=== PATIENT | male | born 1970 | race Caucasian/White ===

== ENCOUNTER → 2017-05-31 | Outpatient (CLI) | payer OTHER ==
[~2017-05-31] MED LIST: DAYPRO600 M1 PO; KEFLEX500 M1 PO; NAPROSYN500 MG PO
[2017-05-31 08:06] LABS: BASO % 0.7 % (0.0-1.0); EOS # 0.1 10*3/uL (0.0-0.4); EOS % 2.4 % (1.0-4.0); HEMATOCRIT 46.2 % (42.0-52.0); HEMOGLOBIN 16.1 g/dl (14.0-18.0); LYMPH # 1.4 10*3/uL (1.3-4.4); MEAN CELL VOLUME 89.4 fl (80.0-94.0); MEAN CORPUSCULAR HGB 31.1 pg (27.0-31.0); MEAN CORPUSCULAR HGB CONC 34.8 g/dl (33.0-37.0); MEAN PLATELET VOLUME 9.9 fl (9.6-12.3); MONO # 0.4 10*3/uL (0.1-1.0); NEUT # 2.6 10*3/uL (2.3-7.9); NEUT % 58.7 % (47.0-73.0); PLATELET COUNT AUTOMATED 203 10*3/uL (130-400); RED BLOOD COUNT 5.17 10*6/uL (4.50-5.90); RED CELL DISTRI WIDTH 12.7 % (0-14.5); WHITE BLOOD COUNT 4.5 10*3/uL (4.8-10.8)
[2017-05-31 08:30] LABS: ALBUMIN 3.7 gm/dl (3.1-4.5); ALKALINE PHOSPHATASE 78 U/L (45-117); BUN 19 mg/dl (7-24); CHLORIDE 106 mmol/L (98-107); CHOLESTEROL 221 mg/dL (<200); CREATININE 1.12 mg/dL (0.70-1.30); HDL CHOLESTEROL 56 mg/dl (40-60); LDL CHOLESTEROL 142 mg/dL (9-159); POTASSIUM 4.6 mmol/L (3.5-5.1); SGOT/AST 26 IU/L (3-35); SGPT/ALT 60 U/L (12-78); SODIUM 140 mmol/L (136-145); TOTAL PROTEIN 7.4 gm/dL (6.4-8.2); TRIGLYCERIDES 114 mg/dl (<150); VLDL CHOLESTEROL 23 mg/dL (6-40)
== END | disposition home or self-care (01) ==
LOC: LAB 07:51
PROVIDERS: Family Medicine
DX: E55.9 Vitamin D deficiency, unspecified (principal); E66.9 Obesity, unspecified

== ENCOUNTER → 2018-03-19 | Outpatient (CLI) | payer OTHER | END | disposition home or self-care (01) | LOC: RESCLI 01:43 | DX: E66.9 Obesity, unspecified (principal); R03.0 Elevated blood-pressure reading, without diagnosis of hypertension; N52.9 Male erectile dysfunction, unspecified; Z76.89 Persons encountering health services in other specified circumstances; Z88.8 Allergy status to other drugs, medicaments and biological substances; Z79.899 Other long term (current) drug therapy; Z68.34 Body mass index [BMI] 34.0-34.9, adult ==

== ENCOUNTER → 2018-06-27 | Outpatient (CLI) | payer OTHER | END | disposition home or self-care (01) | LOC: RESCLI 03:31 | DX: E66.9 Obesity, unspecified (principal); N52.9 Male erectile dysfunction, unspecified; F32.0 Major depressive disorder, single episode, mild; Z79.82 Long term (current) use of aspirin; Z79.899 Other long term (current) drug therapy; Z88.8 Allergy status to other drugs, medicaments and biological substances ==

== ENCOUNTER → 2018-07-30 | Outpatient (CLI) | payer OTHER ==
[2018-07-31 07:10] LABS: PROLACTIN 004465 33.5 ng/mL (4.0-15.2)
[2018-08-01 12:06] LABS: TESTOSTERONE FREE, (DIRECT) 5.1 pg/mL (6.8-21.5)
== END | disposition home or self-care (01) ==
LOC: LAB 07:19
DX: N52.01 Erectile dysfunction due to arterial insufficiency (principal)

== ENCOUNTER → 2018-09-20 | Outpatient (CLI) | payer OTHER ==
[2018-09-20 10:03] LABS: ALBUMIN 3.9 gm/dl (3.1-4.5); ALKALINE PHOSPHATASE 77 U/L (45-117); BUN 12 mg/dl (7-24); CHLORIDE 107 mmol/L (98-107); FREE T4 1.03 ng/dl (0.76-1.46); POTASSIUM 4.2 mmol/L (3.5-5.1); SGOT/AST 20 IU/L (3-35); SGPT/ALT 49 U/L (12-78); SODIUM 141 mmol/L (136-145); TOTAL PROTEIN 7.3 gm/dL (6.4-8.2)
[2018-09-21 10:05] LABS: FOLLICLE STIMULATING HORMONE 2.5 mIU/mL (1.5-12.4); LUTEINIZING HORMONE 004283 4.3 mIU/mL (1.7-8.6); PROLACTIN 004465 14.6 ng/mL (4.0-15.2)
[2018-09-22 12:09] LABS: TESTOSTERONE FREE, (DIRECT) 5.1 pg/mL (6.8-21.5)
== END | disposition home or self-care (01) ==
LOC: LAB 09-18 07:39
PROVIDERS: Internal Medicine Endocrinology, Diabetes & Metabolism
DX: E29.1 Testicular hypofunction (principal); R68.82 Decreased libido

== ENCOUNTER → 2018-12-19 | Outpatient (CLI) | payer OTHER ==
[2018-12-19 09:38] LABS: BUN 15 mg/dl (7-24); CHLORIDE 104 mmol/L (98-107); CREATININE 1.28 mg/dL (0.70-1.30); POTASSIUM 4.5 mmol/L (3.5-5.1); SGOT/AST 30 IU/L (3-35); SGPT/ALT 64 U/L (12-78); SODIUM 139 mmol/L (136-145)
[2018-12-19 09:40] LABS: ALKALINE PHOSPHATASE 82 U/L (45-117); TOTAL PROTEIN 7.6 gm/dL (6.4-8.2)
== END | disposition home or self-care (01) ==
LOC: LAB 08:31
PROVIDERS: Internal Medicine Endocrinology, Diabetes & Metabolism
DX: E29.1 Testicular hypofunction (principal); R68.82 Decreased libido

== ENCOUNTER → 2019-05-27 | Outpatient (CLI) | payer OTHER ==
[2019-05-27 10:06] LABS: ALBUMIN 3.9 gm/dl (3.1-4.5); BUN 18 mg/dl (7-24); CHLORIDE 101 mmol/L (98-107); POTASSIUM 4.3 mmol/L (3.5-5.1); SODIUM 134 mmol/L (136-145)
[2019-05-27 10:09] LABS: ALKALINE PHOSPHATASE 88 U/L (45-117); CREATININE 1.24 mg/dL (0.70-1.30); SGOT/AST 32 IU/L (3-35); SGPT/ALT 63 U/L (12-78); TOTAL PROTEIN 7.3 gm/dL (6.4-8.2)
== END | disposition home or self-care (01) ==
LOC: LAB 08:28
PROVIDERS: Internal Medicine Endocrinology, Diabetes & Metabolism
DX: E29.1 Testicular hypofunction (principal)

== ENCOUNTER → 2019-09-09 | Outpatient (CLI) | payer BC ==
[2019-09-11 10:06] LABS: TESTOSTERONE FREE, (DIRECT) 17.8 pg/mL (6.8-21.5)
== END ==
LOC: LAB 11:41
PROVIDERS: Internal Medicine Endocrinology, Diabetes & Metabolism
DX: E29.1 Testicular hypofunction (principal)

== ENCOUNTER → 2020-07-13 | Outpatient (CLI) | payer BC, OTHER ==
[~2020-07-13] MED LIST changes: +ASPIRIN ADULT L81 M2 PO; +PROTONIX20 MG PO; +XYOSTED SQ; +ZYRTEC10 M3 PO
[2020-07-13 13:10] LABS: BASO % 0.7 % (0.0-1.0); EOS # 0.1 10*3/uL (0.0-0.4); EOS % 1.9 % (1.0-4.0); HEMATOCRIT 54.2 % (42.0-52.0); LYMPH # 1.4 10*3/uL (1.3-4.4); LYMPH % 24.2 % (27.0-41.0); MEAN CELL VOLUME 90.9 fl (80.0-94.0); MEAN CORPUSCULAR HGB 30.9 pg (27.0-31.0); MEAN CORPUSCULAR HGB CONC 33.9 g/dl (33.0-37.0); MEAN PLATELET VOLUME 9.6 fl (9.6-12.3); MONO # 0.4 10*3/uL (0.1-1.0); MONO % 6.7 % (3.0-9.0); NEUT # 3.9 10*3/uL (2.3-7.9); NEUT % 66.3 % (47.0-73.0); PLATELET COUNT AUTOMATED 198 10*3/uL (130-400); RED BLOOD COUNT 5.96 10*6/uL (4.50-5.90); RED CELL DISTRI WIDTH 12.6 % (0-14.5); WHITE BLOOD COUNT 5.8 10*3/uL (4.8-10.8)
[2020-07-13 13:26] LABS: ALBUMIN 3.9 gm/dl (3.1-4.5); ALKALINE PHOSPHATASE 78 U/L (45-117); BUN 18 mg/dl (7-24); CHLORIDE 106 mmol/L (98-107); CHOLESTEROL 194 mg/dL (<200); CREATININE 1.18 mg/dL (0.70-1.30); FREE T4 1.05 ng/dl (0.76-1.46); POTASSIUM 4.1 mmol/L (3.5-5.1); SGOT/AST 32 IU/L (3-35); SGPT/ALT 90 U/L (12-78); SODIUM 136 mmol/L (136-145); TOTAL PROTEIN 7.5 gm/dL (6.4-8.2); TRIGLYCERIDES 149 mg/dl (<150); VLDL CHOLESTEROL 30 mg/dL (6-40)
[2020-07-13 13:31] LABS: HDL CHOLESTEROL 50 mg/dl (40-60); LDL CHOLESTEROL 114 mg/dL (9-159)
[2020-07-13 14:05] LABS: VITAMIN D, 25-HYDROXY 29.3 ng/mL (30-100)
== END | disposition home or self-care (01) ==
LOC: COVID19 10:00 → LAB 12:09
PROVIDERS: ATTEND Surgery
DX: Z01.812 Encounter for preprocedural laboratory examination (principal); F39 Unspecified mood [affective] disorder; Z20.828 Contact with and (suspected) exposure to other viral communicable diseases

== ENCOUNTER → 2020-07-18 | Day surgery (SDC) | payer BC, OTHER ==
[~2020-07-18] VITALS: Ht 182.8 cm; Wt 115.2 kg
[2020-07-18 06:52] VITALS: BP 133/94
[2020-07-18 08:08] VITALS: BP 113/81
[2020-07-18 08:18] VITALS: BP 118/75
[2020-07-18 08:33] VITALS: BP 133/71
== END ==
LOC: SDC 07-13 08:00
PROVIDERS: ATTEND Surgery
DX: Z12.11 Encounter for screening for malignant neoplasm of colon (principal); D12.4 Benign neoplasm of descending colon; K29.50 Unspecified chronic gastritis without bleeding; R13.10 Dysphagia, unspecified; K57.30 Diverticulosis of large intestine without perforation or abscess without bleeding; K21.9 Gastro-esophageal reflux disease without esophagitis; F32.9 Major depressive disorder, single episode, unspecified; I48.19 Other persistent atrial fibrillation; Z79.899 Other long term (current) drug therapy

== ENCOUNTER → 2020-10-04 | Outpatient (CLI) | payer BC, OTHER ==
[2020-10-04 17:27] LABS: ALBUMIN 3.7 gm/dl (3.1-4.5); ALKALINE PHOSPHATASE 85 U/L (45-117); BUN 18 mg/dl (7-24); CHLORIDE 109 mmol/L (98-107); CREATININE 1.26 mg/dL (0.70-1.30); POTASSIUM 4.2 mmol/L (3.5-5.1); SGOT/AST 40 IU/L (3-35); SGPT/ALT 108 U/L (12-78); SODIUM 139 mmol/L (136-145); TOTAL PROTEIN 7.2 gm/dL (6.4-8.2)
== END | disposition home or self-care (01) ==
LOC: LAB 16:19
PROVIDERS: ATTEND Internal Medicine Endocrinology, Diabetes & Metabolism
DX: E29.1 Testicular hypofunction (principal)

== ENCOUNTER → 2020-10-06 | Outpatient (CLI) | payer BC, OTHER ==
[2020-10-08 02:06] LABS: TESTOSTERONE FREE, (DIRECT) 15.4 pg/mL (7.2-24.0)
== END | disposition home or self-care (01) ==
LOC: LAB 10-05 14:26
PROVIDERS: ATTEND Internal Medicine Endocrinology, Diabetes & Metabolism
DX: E29.1 Testicular hypofunction (principal)

== ENCOUNTER → 2020-11-12 | Outpatient (CLI) | payer BC, OTHER ==
[2020-11-12 10:03] LABS: ALBUMIN 3.6 gm/dl (3.1-4.5); ALKALINE PHOSPHATASE 81 U/L (45-117); BUN 16 mg/dl (7-24); CHLORIDE 108 mmol/L (98-107); CREATININE 1.22 mg/dL (0.70-1.30); POTASSIUM 3.8 mmol/L (3.5-5.1); SGOT/AST 28 IU/L (3-35); SGPT/ALT 93 U/L (12-78); SODIUM 140 mmol/L (136-145); TOTAL PROTEIN 7.1 gm/dL (6.4-8.2)
[2020-11-16 13:07] LABS: TESTOSTERONE FREE, (DIRECT) 14.3 pg/mL (7.2-24.0)
== END | disposition home or self-care (01) ==
LOC: LAB 09:15
PROVIDERS: ATTEND Internal Medicine Endocrinology, Diabetes & Metabolism
DX: E29.1 Testicular hypofunction (principal)

== ENCOUNTER → 2021-02-25 | Outpatient (CLI) | payer BC, OTHER | END | disposition home or self-care (01) | LOC: LAB 10:41 | PROVIDERS: ATTEND Internal Medicine Endocrinology, Diabetes & Metabolism | DX: E29.1 Testicular hypofunction (principal) ==

== ENCOUNTER → 2021-04-30 | Outpatient (CLI) | payer BC, OTHER ==
[2021-04-30 11:56] LABS: BASO % 0.4 % (0.0-1.0); EOS # 0.1 10*3/uL (0.0-0.4); EOS % 1.3 % (1.0-4.0); HEMATOCRIT 48.1 % (42.0-52.0); LYMPH # 1.2 10*3/uL (1.3-4.4); LYMPH % 24.3 % (27.0-41.0); MEAN CELL VOLUME 90.6 fl (80.0-94.0); MEAN CORPUSCULAR HGB 31.5 pg (27.0-31.0); MEAN CORPUSCULAR HGB CONC 34.7 g/dl (33.0-37.0); MEAN PLATELET VOLUME 9.6 fl (9.6-12.3); MONO # 0.5 10*3/uL (0.1-1.0); MONO % 9.4 % (3.0-9.0); NEUT # 3.1 10*3/uL (2.3-7.9); NEUT % 64.2 % (47.0-73.0); PLATELET COUNT AUTOMATED 219 10*3/uL (130-400); RED BLOOD COUNT 5.31 10*6/uL (4.50-5.90); RED CELL DISTRI WIDTH 14.6 % (0-14.5); WHITE BLOOD COUNT 4.8 10*3/uL (4.8-10.8)
[2021-04-30 12:14] LABS: ALBUMIN 3.8 gm/dl (3.1-4.5); BUN 15 mg/dl (7-24); CHLORIDE 107 mmol/L (98-107); CHOLESTEROL 195 mg/dL (<200); CREATININE 1.16 mg/dL (0.70-1.30); LDL CHOLESTEROL 129 mg/dL (9-159); POTASSIUM 3.8 mmol/L (3.5-5.1); SGOT/AST 24 IU/L (3-35); SGPT/ALT 71 U/L (12-78); SODIUM 138 mmol/L (136-145); TOTAL PROTEIN 6.9 gm/dL (6.4-8.2); TRIGLYCERIDES 69 mg/dl (<150)
[2021-04-30 12:22] LABS: ALKALINE PHOSPHATASE 72 U/L (45-117)
== END | disposition home or self-care (01) ==
LOC: LAB 11:31
PROVIDERS: ATTEND Nurse Practitioner Family
DX: Z13.220 Encounter for screening for lipoid disorders (principal); Z13.29 Encounter for screening for other suspected endocrine disorder; I10 Essential (primary) hypertension; Z12.5 Encounter for screening for malignant neoplasm of prostate

== ENCOUNTER → 2021-06-07 | Outpatient (CLI) | payer BC, OTHER | END | disposition home or self-care (01) | LOC: D 17:03 | PROVIDERS: ATTEND Nurse Practitioner Family | DX: E66.9 Obesity, unspecified (principal) ==

== ENCOUNTER → 2021-12-07 | Outpatient (CLI) | payer BC, OTHER ==
[2021-12-07 16:22] LABS: ALKALINE PHOSPHATASE 72 U/L (45-117); BUN 24 mg/dl (7-24); CHLORIDE 104 mmol/L (98-107); POTASSIUM 3.7 mmol/L (3.5-5.1); SGOT/AST 16 IU/L (3-35); SGPT/ALT 38 U/L (12-78); SODIUM 138 mmol/L (136-145); TOTAL PROTEIN 7.5 gm/dL (6.4-8.2)
== END | disposition home or self-care (01) ==
LOC: LAB 15:22
PROVIDERS: ATTEND Internal Medicine Endocrinology, Diabetes & Metabolism
DX: E29.1 Testicular hypofunction (principal)

== ENCOUNTER → 2023-06-24 | Outpatient (CLI) | payer OTHER ==
[2023-06-24 08:19] LABS: BASO % 0.6 % (0.0-1.0); EOS # 0.2 10*3/uL (0.0-0.4); EOS % 3.4 % (1.0-4.0); LYMPH # 1.2 10*3/uL (1.3-4.4); LYMPH % 18.8 % (27.0-41.0); MEAN CELL VOLUME 89.2 fl (80.0-94.0); MEAN CORPUSCULAR HGB 30.4 pg (27.0-31.0); MONO # 0.4 10*3/uL (0.1-1.0); MONO % 5.5 % (3.0-9.0); NEUT # 4.7 10*3/uL (2.3-7.9); NEUT % 71.4 % (47.0-73.0); PLATELET COUNT AUTOMATED 211 10*3/uL (130-400); RED BLOOD COUNT 5.83 10*6/uL (4.50-5.90); RED CELL DISTRI WIDTH 13.7 % (0-14.5); WHITE BLOOD COUNT 6.5 10*3/uL (4.8-10.8)
[2023-06-24 08:48] LABS: ALKALINE PHOSPHATASE 71 U/L (46-116); BUN 19 mg/dl (9-23); CHLORIDE 105 mmol/L (98-107); CHOLESTEROL 197 mg/dL (<200); LDL CHOLESTEROL 121 mg/dL (9-159); POTASSIUM 4.4 mmol/L (3.4-5.1); SGPT/ALT 31 U/L (5-49); TOTAL PROTEIN 7.3 gm/dL (6.0-8.0); TRIGLYCERIDES 66 mg/dl (<150)
== END | disposition home or self-care (01) ==
LOC: LAB 07:52
PROVIDERS: ATTEND Nurse Practitioner Family
DX: H70.91 Unspecified mastoiditis, right ear (principal); H92.01 Otalgia, right ear; Z23 Encounter for immunization; Z79.899 Other long term (current) drug therapy

== ENCOUNTER → 2023-07-29 | Day surgery (SDC) | payer OTHER ==
[2023-07-25 12:08] VITALS: BP 145/82
[2023-07-25 13:38] LABS: BASO % 0.7 % (0.0-1.0); EOS # 0.3 10*3/uL (0.0-0.4); EOS % 4.9 % (1.0-4.0); HEMATOCRIT 46.9 % (42.0-52.0); LYMPH # 1.5 10*3/uL (1.3-4.4); LYMPH % 26.5 % (27.0-41.0); MEAN CELL VOLUME 91.2 fl (80.0-94.0); MEAN CORPUSCULAR HGB 30.7 pg (27.0-31.0); MEAN CORPUSCULAR HGB CONC 33.7 g/dl (33.0-37.0); MEAN PLATELET VOLUME 9.4 fl (9.6-12.3); MONO # 0.5 10*3/uL (0.1-1.0); MONO % 8.2 % (3.0-9.0); NEUT # 3.3 10*3/uL (2.3-7.9); NEUT % 59.5 % (47.0-73.0); PLATELET COUNT AUTOMATED 199 10*3/uL (130-400); RED BLOOD COUNT 5.14 10*6/uL (4.50-5.90); RED CELL DISTRI WIDTH 14.6 % (0-14.5); WHITE BLOOD COUNT 5.5 10*3/uL (4.8-10.8)
[2023-07-25 14:18] LABS: BUN 20 mg/dl (9-23); CHLORIDE 106 mmol/L (98-107); POTASSIUM 3.7 mmol/L (3.4-5.1)
[~2023-07-29] VITALS: Ht 182.8 cm; Wt 107.5 kg
[2023-07-29 07:23] VITALS: BP 136/85
[2023-07-29 08:50] VITALS: BP 125/85
[2023-07-29 09:05] VITALS: BP 122/83
[2023-07-29 09:20] VITALS: BP 117/88
[2023-07-29 09:35] VITALS: BP 118/82
[2023-07-29 09:50] VITALS: BP 128/85
== END | disposition home or self-care (01) ==
LOC: SDC 07-25 12:30
PROVIDERS: ATTEND Surgery
DX: K40.90 Unilateral inguinal hernia, without obstruction or gangrene, not specified as recurrent (principal); I48.91 Unspecified atrial fibrillation; F32.A Depression, unspecified; E66.9 Obesity, unspecified; K21.9 Gastro-esophageal reflux disease without esophagitis; N52.9 Male erectile dysfunction, unspecified; Z87.891 Personal history of nicotine dependence; Z79.899 Other long term (current) drug therapy; Z98.818 Other dental procedure status; Z98.890 Other specified postprocedural states; Z68.32 Body mass index [BMI] 32.0-32.9, adult

== ENCOUNTER → 2023-08-29 | Outpatient (CLI) | payer OTHER | END | disposition home or self-care (01) | LOC: US 09:00 | PROVIDERS: ATTEND Physician Assistant | DX: R59.1 Generalized enlarged lymph nodes (principal) ==

== ENCOUNTER → 2023-11-26 | Outpatient (CLI) | payer OTHER ==
[2023-11-26 17:41] LABS: ALKALINE PHOSPHATASE 72 U/L (46-116); BUN 20 mg/dl (9-23); CHLORIDE 105 mmol/L (98-107); SGPT/ALT 42 U/L (5-49); TOTAL PROTEIN 6.9 gm/dL (6.0-8.0)
[2023-11-30 19:06] LABS: TESTOSTERONE FREE, (DIRECT) 5.4 pg/mL (7.2-24.0)
== END | disposition home or self-care (01) ==
LOC: LAB 17:00
PROVIDERS: ATTEND Internal Medicine Endocrinology, Diabetes & Metabolism
DX: Z12.5 Encounter for screening for malignant neoplasm of prostate (principal); E29.1 Testicular hypofunction

== ENCOUNTER → 2024-10-26 | Outpatient (CLI) | payer OTHER ==
[2024-10-26 12:35] LABS: ALKALINE PHOSPHATASE 60 U/L (46-116); BUN 16 mg/dl (9-23); CHLORIDE 102 mmol/L (98-107); POTASSIUM 4.1 mmol/L (3.4-5.1); SGPT/ALT 37 U/L (5-49); TOTAL PROTEIN 7.1 gm/dL (6.0-8.0)
== END | disposition home or self-care (01) ==
LOC: LAB 11:39
PROVIDERS: ATTEND Internal Medicine Endocrinology, Diabetes & Metabolism
DX: Z12.5 Encounter for screening for malignant neoplasm of prostate (principal); E29.1 Testicular hypofunction

== ENCOUNTER → 2025-02-09 | Outpatient (CLI) | payer OTHER ==
[2025-02-09 10:37] LABS: BASO % 0.5 % (0.0-1.0); EOS # 0.1 10*3/uL (0.0-0.4); EOS % 2.1 % (1.0-4.0); HEMATOCRIT 45.4 % (42.0-52.0); MEAN CELL VOLUME 92.7 fl (80.0-94.0); MEAN CORPUSCULAR HGB 32.2 pg (27.0-31.0); MEAN CORPUSCULAR HGB CONC 34.8 g/dl (33.0-37.0); MEAN PLATELET VOLUME 9.6 fl (9.6-12.3); MONO # 0.3 10*3/uL (0.1-1.0); MONO % 7.7 % (3.0-9.0); NEUT # 2.9 10*3/uL (2.3-7.9); NEUT % 66.4 % (47.0-73.0); PLATELET COUNT AUTOMATED 190 10*3/uL (130-400); RED CELL DISTRI WIDTH 12.9 % (0-14.5); WHITE BLOOD COUNT 4.3 10*3/uL (4.8-10.8)
[2025-02-09 11:25] LABS: ALKALINE PHOSPHATASE 63 U/L (46-116); BUN 15 mg/dl (9-23); CHLORIDE 103 mmol/L (98-107); CHOLESTEROL 258 mg/dL (<200); LDL CHOLESTEROL 164 mg/dL (9-159); POTASSIUM 4.2 mmol/L (3.4-5.1); SGPT/ALT 44 U/L (5-49); TOTAL PROTEIN 6.8 gm/dL (6.0-8.0); TRIGLYCERIDES 239 mg/dl (<150)
== END | disposition home or self-care (01) ==
LOC: LAB 10:08
PROVIDERS: ATTEND Nurse Practitioner Family
DX: K21.9 Gastro-esophageal reflux disease without esophagitis (principal); E78.1 Pure hyperglyceridemia; F39 Unspecified mood [affective] disorder; Z76.89 Persons encountering health services in other specified circumstances

== ENCOUNTER → 2025-04-26 | Outpatient (CLI) | payer OTHER | END | disposition home or self-care (01) | LOC: CARD 12:50 | DX: Z51.81 Encounter for therapeutic drug level monitoring (principal); Z79.899 Other long term (current) drug therapy ==

== ENCOUNTER → 2025-05-20 | Outpatient (CLI) | payer OTHER | END | disposition home or self-care (01) | LOC: CARD 01:48 | PROVIDERS: ATTEND Internal Medicine Cardiovascular Disease | DX: I48.91 Unspecified atrial fibrillation (principal) ==

== ENCOUNTER → 2025-07-30 | Outpatient (CLI) | payer OTHER | END | disposition home or self-care (01) | LOC: ORTHO 02:02 | PROVIDERS: ATTEND Orthopaedic Surgery | DX: M19.012 Primary osteoarthritis, left shoulder (principal); M25.812 Other specified joint disorders, left shoulder; M25.712 Osteophyte, left shoulder; M25.512 Pain in left shoulder ==

== ENCOUNTER → 2025-08-09 | Outpatient (CLI) | payer OTHER ==
[2025-08-09 10:29] LABS: BUN 13 mg/dl (9-23); LDL CHOLESTEROL 64 mg/dL (9-159); SGPT/ALT 48 U/L (5-49)
[2025-08-11 03:06] LABS: TESTOS, FREE 7.3 pg/mL (7.2-24.0)
== END | disposition home or self-care (01) ==
LOC: LAB 09:17
PROVIDERS: ATTEND Nurse Practitioner Family
DX: J30.2 Other seasonal allergic rhinitis (principal); F39 Unspecified mood [affective] disorder; E29.1 Testicular hypofunction; K21.9 Gastro-esophageal reflux disease without esophagitis; N52.9 Male erectile dysfunction, unspecified